=== PATIENT | male | born 1965 | race Caucasian/White ===

== ENCOUNTER 2019-08-22 17:50 | Emergency (ER) | payer BC ==
[~2019-08-22] VITALS: Ht 185.4 cm; Wt 135.6 kg
[2019-08-22 17:59] VITALS: BP 114/80; Ht 185.4 cm; Wt 135.6 kg
== END 2019-08-22 18:23 | disposition home or self-care (01) ==
LOC: ED 17:50
DX: K42.9 Umbilical hernia without obstruction or gangrene (principal); E66.01 Morbid (severe) obesity due to excess calories